=== PATIENT | male | born 2000 | race Caucasian/White ===

== ENCOUNTER 2018-07-29 20:05 | Emergency (ER) | payer MEDICAID ==
[~2018-07-29] VITALS: Ht 182.9 cm; Wt 114.9 kg
[~2018-07-29 20:05] MED LIST: BACTRIM1 TAB; KEFLEX250 MG; NOR10T
[2018-07-29 20:26] VITALS: Ht 182.9 cm; Wt 114.9 kg
[2018-07-29 21:40] LABS: BASOPHIL % 0.3 % (0-2); RED CELL DISTRIBUTION WIDTH 12.8 % (11.5-14.5)
[2018-07-29 21:42] LABS: PLATELET COUNT 414 x10^3mcL (130-400)
[2018-07-29 21:52] VITALS: BP 123/61
[2018-07-29 22:04] LABS: CALCIUM 8.7 mg/dL (8.5-10.1); CHLORIDE SERUM 101 mmol/L (98-107); CREATININE SERUM 0.9 mg/dL (0.7-1.3); GFR1 > 60 mL/min; GLUCOSE SERUM 104 mg/dL (74-106); POTASSIUM SERUM 3.6 mmol/L (3.5-5.1); SODIUM SERUM 141 mmol/L (136-145)
[2018-07-29 22:09] LABS: ALKALINE PHOSPHATASE 95 U/L (46-116); ALT/SGPT 34 U/L (16-63); AST/SGOT 23 U/L (15-37); BILIRUBIN TOTAL 0.29 mg/dL (0.20-1.00)
[2018-07-29 22:11] LABS: ALBUMIN 3.1 g/dL (3.4-5.0)
== END 2018-07-30 00:49 | disposition home or self-care (01) ==
LOC: ED 20:05
PROVIDERS: Emergency Medicine
DX: J18.9 Pneumonia, unspecified organism (principal)
CPT/HCPCS: J0696; J7030; Q9967